=== PATIENT | female | born 1995 | race Caucasian/White ===

== ENCOUNTER 2023-02-16 19:27 | Emergency (ER) | payer OTHER ==
[~2023-02-16] VITALS: Ht 154.9 cm; Wt 78.9 kg
[2023-02-16] MEDS ORDERED: ZOLOFT50 MG PO (19:42)
== END 2023-02-16 21:05 | disposition left against medical advice (07) ==
LOC: ED 19:27
DX: T36.8X5A Adverse effect of other systemic antibiotics, initial encounter (principal); F10.920 Alcohol use, unspecified with intoxication, uncomplicated; Z53.21 Procedure and treatment not carried out due to patient leaving prior to being seen by health care provider; Y92.89 Other specified places as the place of occurrence of the external cause